=== PATIENT | female | born 1985 | race Native Hawaiian/Other Pacific Islander ===

== ENCOUNTER 2016-12-14 20:18 | Emergency (ER) | payer OTHER ==
[~2016-12-14] VITALS: Ht 167.6 cm; Wt 45.4 kg
[2016-12-14 22:08] VITALS: BP 125/86; TEMP 98.4
== END 2016-12-14 22:15 | disposition home or self-care (01) ==
LOC: ED 20:18
DX: S30.0XXA Contusion of lower back and pelvis, initial encounter (principal); W17.89XA Other fall from one level to another, initial encounter; Y92.89 Other specified places as the place of occurrence of the external cause
CPT/HCPCS: 99283; J1885; J2405

== ENCOUNTER 2019-06-29 08:43 | Emergency (ER) | payer OTHER ==
[~2019-06-29] VITALS: Ht 167.6 cm; Wt 43.1 kg
[2019-06-29 08:50] VITALS: TEMP 98
[2019-06-29 10:11] VITALS: BP 118/69
== END 2019-06-29 10:13 | disposition home or self-care (01) ==
LOC: ED 08:43
DX: K02.9 Dental caries, unspecified (principal); K04.7 Periapical abscess without sinus; F17.210 Nicotine dependence, cigarettes, uncomplicated
CPT/HCPCS: 96372; 99282; 99283; J1885